=== PATIENT | female | born 2000 | race African-American/Black ===

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

== ENCOUNTER 2019-06-27 16:17 | Emergency (ER) | payer OTHER, SELFPAY ==
[~2019-06-27] VITALS: Ht 152.4 cm; Wt 61.5 kg
[2019-06-27 16:18] VITALS: BP 152/96
[2019-06-27] MEDS ORDERED: KEFL500C17 PO (17:13)
== END 2019-06-27 17:27 | disposition home or self-care (01) ==
LOC: M ED 16:17
DX: N30.00 Acute cystitis without hematuria (principal)

== ENCOUNTER → 2021-01-22 | Outpatient (REF) | payer OTHER ==
[~2021-01-22] MED LIST changes: +KEFL500C17 PO
[2021-01-22 17:32] LABS: HEMATOCRIT 39.5 % (36.0-47.0); HEMOGLOBIN 13.5 g/dl (12.0-15.5); MEAN CORPUSCULAR HEMOGLOBIN 28.4 pg (27.0-33.0); MEAN CORPUSCULAR HGB CONC 34.2 g/dl (32.0-36.5); PLATELET COUNT, AUTOMATED 304 10^3/uL (150-450); RED BLOOD COUNT 4.76 10^6/uL (4.00-5.40); WHITE BLOOD COUNT 5.9 10^3/uL (4.0-10.0)
[2021-01-22 18:14] LABS: HCG, SERUM QUANTITATIVE 4620 MIU/ML
[2021-01-22 18:21] LABS: HEPATITIS B SURFACE ANTIGEN NEGATIVE (NEGATIVE)
[2021-01-22 18:49] LABS: HEPATITIS C VIRUS ABY INDEX < 0.0 INDEX (<0.8)
[2021-01-22 18:50] LABS: HIV 1&2 SCREEN CENTAUR NEGATIVE (NEGATIVE)
== END ==
LOC: M LAB REF 17:06
PROVIDERS: ATTEND Obstetrics & Gynecology
DX: Z32.01 Encounter for pregnancy test, result positive (principal); O36.80X0 Pregnancy with inconclusive fetal viability, not applicable or unspecified; Z3A.00 Weeks of gestation of pregnancy not specified

== ENCOUNTER → 2021-07-01 | Outpatient (CLI) | payer OTHER ==
[2021-07-01 13:31] LABS: BASO % 0.3 % (0.0-1.0); EOS # 0.1 10^3/uL (0.0-0.5); HEMATOCRIT 35.3 % (36.0-47.0); HEMOGLOBIN 12.1 g/dl (12.0-15.5); LYMPH # 1.6 10^3/uL (1.5-5.0); LYMPH % 21.9 % (24.0-44.0); MEAN CORPUSCULAR HEMOGLOBIN 29.3 pg (27.0-33.0); MEAN CORPUSCULAR HGB CONC 34.3 g/dl (32.0-36.5); MEAN CORPUSCULAR VOLUME 85.5 fl (80.0-96.0); MONO # 0.6 10^3/uL (0.0-0.8); MONO % 8.4 % (2.0-8.0); NEUTROPHILS # 4.8 10^3/uL (1.5-8.5); NEUTROPHILS % 67.6 % (36.0-66.0); PLATELET COUNT, AUTOMATED 270 10^3/uL (150-450); RED BLOOD COUNT 4.13 10^6/uL (4.00-5.40); WHITE BLOOD COUNT 7.1 10^3/uL (4.0-10.0)
== END ==
LOC: M LAB 11:32
PROVIDERS: ATTEND Obstetrics & Gynecology
DX: Z34.82 Encounter for supervision of other normal pregnancy, second trimester (principal)

== ENCOUNTER → 2021-08-21 | Outpatient (REF) | payer OTHER | LOC: M LAB REF 16:18 | PROVIDERS: ATTEND Advanced Practice Midwife | DX: Z36.85 Encounter for antenatal screening for Streptococcus B (principal) ==

== ENCOUNTER → 2021-08-28 | Outpatient (CLI) | payer OTHER ==
[2021-08-28 17:35] LABS: BASO % 0.3 % (0.0-1.0); EOS # 0.1 10^3/uL (0.0-0.5); EOS % 0.9 % (0.0-3.0); HEMATOCRIT 36.6 % (36.0-47.0); HEMOGLOBIN 12.6 g/dl (12.0-15.5); LYMPH # 1.9 10^3/uL (1.5-5.0); LYMPH % 24.8 % (24.0-44.0); MEAN CORPUSCULAR HEMOGLOBIN 29.8 pg (27.0-33.0); MEAN CORPUSCULAR HGB CONC 34.4 g/dl (32.0-36.5); MEAN CORPUSCULAR VOLUME 86.5 fl (80.0-96.0); MONO # 0.7 10^3/uL (0.0-0.8); MONO % 9.9 % (2.0-8.0); NEUTROPHILS # 4.7 10^3/uL (1.5-8.5); NEUTROPHILS % 63.3 % (36.0-66.0); PLATELET COUNT, AUTOMATED 251 10^3/uL (150-450); RED BLOOD COUNT 4.23 10^6/uL (4.00-5.40); WHITE BLOOD COUNT 7.5 10^3/uL (4.0-10.0)
[2021-08-28 18:04] LABS: ALT/SGPT 9 U/L (12-78); BILIRUBIN,TOTAL 0.2 MG/DL (0.2-1.0); GLOMERULAR FILTRATION RATE > 60.0 (>60); LDH LACTATE DEHYDROGENASE 202 U/L (84-246); URIC ACID 5.5 MG/DL (2.6-6.0)
[2021-08-28 18:07] LABS: CREATININE, URINE 44.5 MG/DL
[2021-08-28 21:34] LABS: CREATININE 24 HOUR, URINE 1268.2 MG/24HR (600-1800); TOTAL PROTEIN 24 HOUR URINE 199.5 MG/24HR (50-150)
== END ==
LOC: M LAB 16:36
PROVIDERS: ATTEND Obstetrics & Gynecology
DX: O14.93 Unspecified pre-eclampsia, third trimester (principal); R03.0 Elevated blood-pressure reading, without diagnosis of hypertension

== ENCOUNTER 2021-09-05 22:38 | Inpatient (IN) | payer OTHER ==
[~2021-09-05] VITALS: Ht 152.4 cm; Wt 72.9 kg
[2021-09-05] MEDS ORDERED: LR 1,000 ML IV SCH (23:00)
[2021-09-05] MEDS ORDERED: LR 1,000 ML IV ONE (23:00)
[2021-09-05] MEDS ORDERED: OXYTOCIN 30 UNITS IN 0.9% NaCl 500ML IV BAG (J2590) As Ordered ONE (23:05)
[2021-09-05 23:32] VITALS: BP 165/84
[2021-09-05] MEDS ORDERED: HOME MED LIST COMPLETE! XX SCH (23:35)
[2021-09-05] MEDS ORDERED: PNVTAB4 PO (23:35)
[2021-09-05 23:37] LABS: CORD GAS ABE A -3.2; CORD GAS HCO3 A 25.3 MEQ/L; CORD GAS PCO2 A 58.8 mmHg; CORD GAS PH A 7.251 UNITS; CORD GAS PO2 A 12.9 mmHg; CORD GAS TCO2 A 27.1 MEQ/L
[2021-09-05 23:40] LABS: CORD GAS ABE V -4.2; CORD GAS HCO3 V 21.4 MEQ/L; CORD GAS O2 SAT V 40.6 %; CORD GAS PCO2 V 41.2 mmHg; CORD GAS PH V 7.333 UNITS; CORD GAS PO2 V 17.8 mmHg; CORD GAS SBC V 19.6 MEQ/L; CORD GAS TCO2 V 22.6 MEQ/L
[2021-09-05 23:48] VITALS: BP 162/96
[2021-09-05] MEDS ORDERED: RHOGAM 300 MCG (1500 IU) INJ (J2790) IM SCH (23:55)
[2021-09-05] MEDS ORDERED: ACETAMINOPHEN TAB 650MG DOSE (2X325MG) PO PRN (23:55)
[2021-09-05] MEDS ORDERED: METHYLERGONOVINE MALEATE 0.2 MG TAB PO PRN (23:55)
[2021-09-05] MEDS ORDERED: MEASLES,MUMPS,RUBELLA VACCINE INJ (MMR-II) (90707) SC SCH (23:55)
[2021-09-05] MEDS ORDERED: OXYTOCIN DRIP 30 UNITS in IV 1 EA IV SCH (23:55)
[2021-09-05] MEDS ORDERED: IBUPROFEN 600MG TAB PO PRN (23:55)
[2021-09-06] VITALS (9 sets, daily range): BP systolic 127–160; BP diastolic 65–95
[2021-09-06 00:08] LABS: HEMATOCRIT 37.9 % (36.0-47.0); HEMOGLOBIN 13.1 g/dl (12.0-15.5); MEAN CORPUSCULAR HEMOGLOBIN 29.1 pg (27.0-33.0); MEAN CORPUSCULAR HGB CONC 34.6 g/dl (32.0-36.5); MEAN CORPUSCULAR VOLUME 84.2 fl (80.0-96.0); PLATELET COUNT, AUTOMATED 275 10^3/uL (150-450)
[2021-09-06 00:21] LABS: ALT/SGPT 8 U/L (12-78); BILIRUBIN,TOTAL 0.2 MG/DL (0.2-1.0); CREATININE FOR GFR 0.89 MG/DL (0.55-1.30); GLOMERULAR FILTRATION RATE > 60.0 (>60); LDH LACTATE DEHYDROGENASE 263 U/L (84-246); URIC ACID 5.9 MG/DL (2.6-6.0)
[2021-09-06] MEDS: IBUPROFEN 800 MG TAB PO PRN ×2 (00:23→17:33)
[2021-09-06] MEDS: ACETAMINOPHEN 500 MG TAB PO PRN ×2 (06:41→09:22)
[2021-09-06] MEDS: PRENATAL VITAMINS CHEWABLE TABLET PO SCH (09:22)
[2021-09-06] MEDS: DOCUSATE SODIUM 100MG CAPSULE PO PRN (20:27)
[2021-09-07 05:49] VITALS: BP 150/90
[2021-09-07] MEDS: PRENATAL VITAMINS CHEWABLE TABLET PO SCH (09:00)
[2021-09-07 10:52] VITALS: BP 150/77
[2021-09-07] MEDS: IBUPROFEN 800 MG TAB PO PRN (16:31)
[2021-09-07] MEDS: DOCUSATE SODIUM 100MG CAPSULE PO PRN (16:34)
== END 2021-09-07 16:35 | disposition home or self-care (01) | DRG 807 ==
LOC: M LDO 22:38 → M LDI 23:05 → M OBS 09-06 01:55
PROVIDERS: ADMIT Obstetrics & Gynecology; ATTEND Obstetrics & Gynecology
PROC: 10E0XZZ Delivery of Products of Conception, External Approach (ICD-10-PCS; principal; 2021-09-05)
DX: O62.3 Precipitate labor (principal); Z37.0 Single live birth; Z3A.37 37 weeks gestation of pregnancy; Z14.01 Asymptomatic hemophilia A carrier; O69.82X0 Labor and delivery complicated by other cord entanglement, without compression, not applicable or unspecified

== ENCOUNTER → 2022-04-08 | Outpatient (REF) ==
[~2022-04-08] MED LIST changes: +PNVTAB4 PO
[2022-04-08 13:08] LABS: RSV AMPLIFICATION NEGATIVE (NEGATIVE)
== END ==
LOC: M LABSMTC 10:32
PROVIDERS: ATTEND Family Medicine
DX: Z20.818 Contact with and (suspected) exposure to other bacterial communicable diseases (principal)

== ENCOUNTER → 2022-09-15 | Outpatient (REF) | payer BC | LOC: M LAB REF 16:54 | PROVIDERS: ATTEND Nurse Practitioner Family | DX: J02.9 Acute pharyngitis, unspecified (principal) ==

== ENCOUNTER → 2022-11-05 | Outpatient (REF) | payer BC ==
[2022-11-05 16:48] LABS: HEMATOCRIT 40.2 % (36.0-47.0); HEMOGLOBIN 13.3 g/dl (12.0-15.5); MEAN CORPUSCULAR HEMOGLOBIN 26.7 pg (27.0-33.0); MEAN CORPUSCULAR HGB CONC 33.1 g/dl (32.0-36.5); MEAN CORPUSCULAR VOLUME 80.6 fl (80.0-96.0); PLATELET COUNT, AUTOMATED 328 10^3/uL (150-450); RED BLOOD COUNT 4.99 10^6/uL (4.00-5.40); WHITE BLOOD COUNT 6.8 10^3/uL (4.0-10.0)
[2022-11-05 17:50] LABS: HIV 1&2 SCREEN NEGATIVE (NEGATIVE)
[2022-11-05 17:58] LABS: HEPATITIS C VIRUS ABY INDEX 0.14 INDEX (<0.8)
[2022-11-05 18:06] LABS: HCG, SERUM QUANTITATIVE 25819.3 MIU/ML (<4.2)
== END ==
LOC: M LAB REF 16:24
PROVIDERS: ATTEND Obstetrics & Gynecology
DX: O36.80X0 Pregnancy with inconclusive fetal viability, not applicable or unspecified (principal); Z32.01 Encounter for pregnancy test, result positive

== ENCOUNTER → 2022-11-13 | Outpatient (CLI) | payer BC | LOC: M RAD 14:02 | PROVIDERS: ATTEND Obstetrics & Gynecology | DX: O36.80X0 Pregnancy with inconclusive fetal viability, not applicable or unspecified (principal); Z32.01 Encounter for pregnancy test, result positive ==

== ENCOUNTER 2022-11-18 14:50 | Emergency (ER) | payer BC ==
[~2022-11-18] VITALS: Ht 154.9 cm; Wt 64.9 kg
[2022-11-18 18:03] LABS: BASO % 0.5 % (0.0-1.0); EOS % 0.3 % (0.0-3.0); HEMATOCRIT 43.6 % (36.0-47.0); LYMPH # 1.7 10^3/uL (1.5-5.0); LYMPH % 22.5 % (24.0-44.0); MEAN CORPUSCULAR HEMOGLOBIN 27.1 pg (27.0-33.0); MEAN CORPUSCULAR HGB CONC 34.4 g/dl (32.0-36.5); MEAN CORPUSCULAR VOLUME 78.8 fl (80.0-96.0); MONO # 0.6 10^3/uL (0.0-0.8); MONO % 8.2 % (2.0-8.0); NEUTROPHILS % 68.1 % (36.0-66.0); PLATELET COUNT, AUTOMATED 321 10^3/uL (150-450); RED BLOOD COUNT 5.53 10^6/uL (4.00-5.40); WHITE BLOOD COUNT 7.4 10^3/uL (4.0-10.0)
[2022-11-18] MEDS ORDERED: FAMOTIDINE 20MG/2ML VIAL IVP ONE (18:05)
[2022-11-18] MEDS ORDERED: ONDANSETRON 4MG 2ML VIAL IV ONE (18:05)
[2022-11-18] MEDS ORDERED: NS 1,000 ML IV ONE (18:05)
[2022-11-18 18:24] LABS: LIPASE 30 U/L (12-53)
[2022-11-18 18:53] LABS: ALBUMIN 4.5 G/DL (3.2-5.2); ALKALINE PHOSPHATASE 64 U/L (46-116); ALT/SGPT < 9 U/L (7.0-40); AST/SGOT 15 U/L (<34); BILIRUBIN,DIRECT 0.3 MG/DL (<0.4); BILIRUBIN,TOTAL 0.8 MG/DL (0.3-1.2); BLOOD UREA NITROGEN < 5 MG/DL (9-23); CALCIUM LEVEL 9.8 MG/DL (8.5-10.1); CARBON DIOXIDE LEVEL 22 MMOL/L (20-31); CHLORIDE LEVEL 98 MMOL/L (98-107); CREATININE FOR GFR 0.55 MG/DL (0.55-1.30); GLOMERULAR FILTRATION RATE > 60.0 (>60); GLUCOSE, FASTING 69 MG/DL (60-100); HCG, SERUM QUANTITATIVE 144875.8 MIU/ML (<4.2); POTASSIUM SERUM 3.9 MMOL/L (3.5-5.1); SODIUM LEVEL 136 MMOL/L (136-145); TOTAL PROTEIN 8.2 G/DL (5.7-8.2)
[2022-11-18] MEDS ORDERED: PROM25SU3 PR (20:27)
[2022-11-18] MEDS ORDERED: FAMO20TA PO (20:27)
[2022-11-18 20:35] VITALS: BP 129/71; TEMP 98.3; O2SAT 100
== END 2022-11-18 20:45 | disposition home or self-care (01) ==
LOC: M ED 14:50
DX: O21.9 Vomiting of pregnancy, unspecified (principal); Z3A.10 10 weeks gestation of pregnancy; K21.9 Gastro-esophageal reflux disease without esophagitis
CPT/HCPCS: 80048; 80076; 81001; 83690; 84702; 85025; 87086; 96374; 96375; 99284; J2405; S0028

== ENCOUNTER → 2022-12-28 | Outpatient (REF) ==
[~2022-12-28] MED LIST changes: +FAMO20TA PO; +PROM25SU3 PR
== END ==
LOC: M EMP 07:55
PROVIDERS: ATTEND Family Medicine
DX: Z11.52 Encounter for screening for COVID-19 (principal)

== ENCOUNTER → 2023-03-18 | Outpatient (CLI) | payer MEDICAID | LOC: M RAD 08:28 | PROVIDERS: ATTEND Obstetrics & Gynecology | DX: Z34.82 Encounter for supervision of other normal pregnancy, second trimester (principal); Z3A.25 25 weeks gestation of pregnancy ==

== ENCOUNTER → 2023-05-03 | Outpatient (CLI) | payer MEDICAID, OTHER ==
[2023-05-03 11:53] LABS: HEMATOCRIT 36.2 % (36.0-47.0); HEMOGLOBIN 12.4 g/dl (12.0-15.5); MEAN CORPUSCULAR HEMOGLOBIN 28.6 pg (27.0-33.0); MEAN CORPUSCULAR HGB CONC 34.3 g/dl (32.0-36.5); MEAN CORPUSCULAR VOLUME 83.4 fl (80.0-96.0); PLATELET COUNT, AUTOMATED 259 10^3/uL (150-450); RED BLOOD COUNT 4.34 10^6/uL (4.00-5.40)
== END ==
LOC: M LAB 10:14
PROVIDERS: ATTEND Obstetrics & Gynecology
DX: Z36.9 Encounter for antenatal screening, unspecified (principal)

== ENCOUNTER → 2023-05-11 | Outpatient (CLI) | payer OTHER | LOC: M RAD 12:12 | PROVIDERS: ATTEND Advanced Practice Midwife | DX: Z34.83 Encounter for supervision of other normal pregnancy, third trimester (principal) ==

== ENCOUNTER → 2023-05-11 | Outpatient (CLI) | payer OTHER ==
[2023-05-11 13:26] LABS: BASO % 0.5 % (0.0-1.0); EOS # 0.1 10^3/uL (0.0-0.5); EOS % 1.1 % (0.0-3.0); HEMOGLOBIN 12.4 g/dl (12.0-15.5); LYMPH # 1.5 10^3/uL (1.5-5.0); MEAN CORPUSCULAR HEMOGLOBIN 28.9 pg (27.0-33.0); MEAN CORPUSCULAR HGB CONC 34.4 g/dl (32.0-36.5); MEAN CORPUSCULAR VOLUME 83.9 fl (80.0-96.0); MONO # 0.6 10^3/uL (0.0-0.8); MONO % 10.1 % (2.0-8.0); NEUTROPHILS # 3.9 10^3/uL (1.5-8.5); NEUTROPHILS % 63.8 % (36.0-66.0); PLATELET COUNT, AUTOMATED 248 10^3/uL (150-450); RED BLOOD COUNT 4.29 10^6/uL (4.00-5.40); WHITE BLOOD COUNT 6.2 10^3/uL (4.0-10.0)
[2023-05-11 13:54] LABS: URIC ACID 4.9 MG/DL (3.1-7.8)
[2023-05-11 13:56] LABS: LDH LACTATE DEHYDROGENASE 173 U/L (120-246)
[2023-05-11 13:57] LABS: ALT/SGPT < 9 U/L (7.0-40); AST/SGOT 12 U/L (<34); BILIRUBIN,TOTAL 0.3 MG/DL (0.3-1.2); CREATININE FOR GFR 0.73 MG/DL (0.55-1.30); GLOMERULAR FILTRATION RATE > 60.0 (>60)
[2023-05-11 14:25] LABS: TOTAL VOLUME, URINE 2500 ML
[2023-05-11 14:37] LABS: CREATININE, URINE 48.8 MG/DL
[2023-05-11 17:17] LABS: URINE TOTAL PROTEIN < 6.0 MG/DL (0-14)
== END ==
LOC: M LAB 12:17
PROVIDERS: ATTEND Advanced Practice Midwife
DX: O14.90 Unspecified pre-eclampsia, unspecified trimester (principal)

== ENCOUNTER → 2023-05-25 | Outpatient (REF) | payer OTHER | LOC: M LAB REF 16:14 | PROVIDERS: ATTEND Obstetrics & Gynecology | DX: Z34.83 Encounter for supervision of other normal pregnancy, third trimester (principal); B95.1 Streptococcus, group B, as the cause of diseases classified elsewhere ==

== ENCOUNTER 2023-06-16 13:57 | Inpatient (IN) | payer OTHER ==
[2023-06-16] VITALS (12 sets, daily range): BP systolic 126–171; BP diastolic 63–89; O2SAT 99
[~2023-06-16] VITALS: Ht 152.4 cm; Wt 78.4 kg
[2023-06-16] MEDS ORDERED: HOME MED LIST COMPLETE! XX SCH (14:15)
[2023-06-16] MEDS ORDERED: CARBOPROST TROMETHAMINE 250 MCG/ML AMP IM PRN (14:30)
[2023-06-16] MEDS ORDERED: TRANEXAMIC ACID INJection 1,000 MG in NS 100 ML IV PRN (14:30)
[2023-06-16] MEDS ORDERED: OXYTOCIN INJ 10UNITS/ML 1ML VIAL IM PRN (14:30)
[2023-06-16] MEDS ORDERED: OXYTOCIN DRIP 30 UNITS in IV 1 EA IV PRN (14:30)
[2023-06-16] MEDS ORDERED: LIDOCAINE 1% MDV 20ML VIAL INFIL PRN (14:30)
[2023-06-16] MEDS: PENICILLIN G POTASSIUM 5 MU IV 5 MU in D5W MINI-BAG PLUS 100 ML IV STA (14:56)
[2023-06-16 15:12] LABS: HEMATOCRIT 38.3 % (36.0-47.0); HEMOGLOBIN 13.3 g/dl (12.0-15.5); MEAN CORPUSCULAR HEMOGLOBIN 28.7 pg (27.0-33.0); MEAN CORPUSCULAR HGB CONC 34.7 g/dl (32.0-36.5); MEAN CORPUSCULAR VOLUME 82.7 fl (80.0-96.0); PLATELET COUNT, AUTOMATED 240 10^3/uL (150-450); RED BLOOD COUNT 4.63 10^6/uL (4.00-5.40); WHITE BLOOD COUNT 7.4 10^3/uL (4.0-10.0)
[2023-06-16] MEDS ORDERED: RHOGAM 300MCG (1500IU) INJ IM SCH (16:45)
[2023-06-16] MEDS ORDERED: DIBUCAINE 1% OINTMENT 30GM TOP PRN (16:45)
[2023-06-16] MEDS: IBUPROFEN 800 MG TAB PO PRN (17:09)
[2023-06-16] MEDS: OXYTOCIN DRIP 30 UNITS in IV 1 EA IV PRN (17:40)
[2023-06-16] MEDS ORDERED: PEN G POT 3,000,000 UNIT/50 ML 3,000,000 UNIT in IV 1 EA IV SCH (19:00)
[2023-06-16] MEDS: ACETAMINOPHEN TAB 650MG DOSE (2X325MG) PO PRN (21:53)
[2023-06-17] MEDS: IBUPROFEN 600MG TAB PO PRN (04:21)
[2023-06-17 05:41] VITALS: BP 171/102; O2SAT 100
[2023-06-17 05:52] VITALS: BP 136/84
[2023-06-17] MEDS: PRENATAL VITAMINS CHEWABLE TABLET PO SCH (09:00)
[2023-06-17] MEDS: ACETAMINOPHEN 500 MG TAB PO PRN (09:41)
[2023-06-17 11:00] VITALS: BP 135/62; O2SAT 98
[2023-06-17 14:00] VITALS: BP 144/84; O2SAT 99
[2023-06-17 18:00] VITALS: BP 144/83; O2SAT 100
[2023-06-17] MEDS: DOCUSATE SODIUM 100MG CAPSULE PO PRN (18:46)
[2023-06-17 22:00] VITALS: BP_SYST 138; BP_SYST 139; BP_DIAS 85; BP_DIAS 94
[2023-06-18 02:00] VITALS: BP 126/69
[2023-06-18 06:00] VITALS: BP 136/81
[2023-06-18] MEDS: MEASLES,MUMPS,RUBELLA VACCINE INJ (MMR-II) SC.IMMUN ONE (07:18)
[2023-06-18 10:00] VITALS: BP 148/87; O2SAT 100
== END 2023-06-18 13:30 | disposition home or self-care (01) | DRG 807 ==
LOC: M LDO 13:57 → M LDI 14:29 → M OBS 19:35
PROVIDERS: ADMIT Advanced Practice Midwife; ATTEND Advanced Practice Midwife
PROC: 10E0XZZ Delivery of Products of Conception, External Approach (ICD-10-PCS; principal; 2023-06-16)
DX: O10.02 Pre-existing essential hypertension complicating childbirth (principal); Z37.0 Single live birth; Z3A.37 37 weeks gestation of pregnancy; O69.81X0 Labor and delivery complicated by cord around neck, without compression, not applicable or unspecified; O99.824 Streptococcus B carrier state complicating childbirth